=== PATIENT | male | born 1945 | race Caucasian/White ===

== ENCOUNTER 2016-11-24 15:14 | Observation (INO) | payer MEDICARE ==
[~2016-11-24] VITALS: Ht 177.8 cm; Wt 72.5 kg
[2016-11-24 15:15] VITALS: BP 195/91; PULSE 109; RESP 20; TEMP 99.4; O2SAT 94
[2016-11-24] MEDS ORDERED: SODIUM CHLORIDE 0.9% FLUSH 10 ML FLUSH IVF PRN (16:30)
--- NOTE | 2016-11-24 16:30 | PD ---
HPI Chief Complaint: Neuro Symptoms/ Deficits Time Seen by Provider: 16:29 Travel History International Travel<30 days: No Contact w/Intl Traveler<30days: No Traveled to known affect area: No History of Present Illness HPI 71-year-old male presents to the ED for evaluation of memory loss. The patient is with his daughters who helped provide the history. They state that the patient just vacationed in [place]. When one daughter asked him about his trip he was unable to recall that he had been vacationing. The patient is unable to provide a medical history. One daughter thinks that the patient was recently taking "a statin." His daughter states that he had some kind of problem with his prostate that caused him to have to catheterize 4 times a day. Patient is unsure when he last catheterized. He denies headaches, dizziness, fever, chills, chest pain, shortness of breath, abdominal pain, nausea, vomiting , changes in bowel habits, back pain. Patient states that it is October 2011, oriented to the president and self. He states that he is very active, plays tennis a few times a week. He lives alone in [place], [place]. [facility] Social History Tobacco Use: No Allergies-Medications (Allergen,Severity, Reaction): Coded Allergies: UNOBTAINABLE (Unverified , 11/24/16) Reported Meds & Prescriptions Reported Meds & Active Scripts Active Active Prescriptions or Reported Medications Unobtainable Review of Systems Except as stated in HPI: all other systems reviewed are Neg Physical Exam Narrative GENERAL: Well-nourished, well-developed white male appearing younger than his stated age in no acute distress. SKIN: Focused skin assessment warm/dry. HEAD: Normocephalic. EYES: No scleral icterus. No injection or drainage. NECK: Supple, trachea midline. No JVD or lymphadenopathy. CARDIOVASCULAR: Regular rate and rhythm without murmurs, gallops, or rubs. RESPIRATORY: Breath sounds clear and equal bilaterally. No accessory muscle use. GASTROINTESTINAL: Abdomen soft, non-tender, nondistended. Active bowel sounds MUSCULOSKELETAL: No cyanosis, or edema. NEUROLOGICAL: Awake and alert. Cranial nerves II through XII intact. Motor and sensory grossly within normal limits. 5/5 muscle strength in all muscle groups. Normal speech. Mild droop of the left side of the smile, patients daughters state this is the patients normal. BACK: Nontender without obvious deformity. No CVA tenderness. Data Data Last Documented VS Vital Signs Date Time Temp Pulse Resp B/P Pulse Ox O2 Delivery O2 Flow Rate FiO2 11/24/16 16:59 98 11/24/16 15:15 99.4 109 20 195/91 Room Air Orders Electrocardiogram (11/24/16 16:30) Prothrombin Time / Inr (Pt) (11/24/16 16:30) Act Partial Throm Time (Ptt) (11/24/16 16:30) Complete Blood Count With Diff (11/24/16 16:30) Comprehensive Metabolic Panel (11/24/16 16:30) Creatine Kinase (Cpk) (11/24/16 16:30) Troponin I (11/24/16 16:30) Urinalysis - C+S If Indicated (11/24/16 16:30) Ct Brain W/O Iv Contrast(Rout) (11/24/16 16:30) Chest, Single Ap (11/24/16 16:30) Ecg Monitoring (11/24/16 16:30) Iv Access Insert/Monitor (11/24/16 16:30) Oximetry (11/24/16 16:30) Sodium Chloride 0.9% Flush (Ns Flush) (11/24/16 16:30) Mra Carotids W Contrast (11/24/16 ) Mri Brain W/O Contrast (11/24/16 ) Admit Order (Ed Use Only) (11/24/16 19:18) Labs Laboratory Tests Test 11/24/16 11/24/16 16:20 16:50 Urine Color YELLOW Urine Turbidity CLEAR Urine pH 5.5 Urine Specific [place] 1.008 Urine Protein NEG mg/dL Urine Glucose (UA) NEG mg/dL Urine Ketones NEG mg/dL Urine Occult Blood NEG Urine Nitrite NEG Urine Bilirubin NEG Urine Urobilinogen LESS THAN 2.0 MG/DL Urine Leukocyte Esterase NEG Urine RBC LESS THAN 1 /hpf Urine Amorphous Sediment RARE Microscopic Urinalysis Comment CATH-CULT NOT IND White Blood Count 11.0 TH/MM3 Red Blood Count 5.66 MIL/MM3 Hemoglobin 16.6 GM/DL Hematocrit 49.1 % Mean Corpuscular Volume 86.7 FL Mean Corpuscular Hemoglobin 29.3 PG Mean Corpuscular Hemoglobin 33.8 % Concent Red Cell Distribution Width 14.5 % Platelet Count 255 TH/MM3 Mean Platelet Volume 8.0 FL Neutrophils (%) (Auto) 81.2 % Lymphocytes (%) (Auto) 10.6 % Monocytes (%) (Auto) 7.2 % Eosinophils (%) (Auto) 0.4 % Basophils (%) (Auto) 0.6 % Neutrophils # (Auto) 9.0 TH/MM3 Lymphocytes # (Auto) 1.2 TH/MM3 Monocytes # (Auto) 0.8 TH/MM3 Eosinophils # (Auto) 0.0 TH/MM3 Basophils # (Auto) 0.1 TH/MM3 CBC Comment DIFF FINAL Differential Comment Prothrombin Time 10.0 SEC Prothromb Time International 0.9 RATIO Ratio Activated Partial 30.4 SEC Thromboplast Time Sodium Level 138 MEQ/L Potassium Level 4.0 MEQ/L Chloride Level 105 MEQ/L Carbon Dioxide Level 27.1 MEQ/L Anion Gap 6 MEQ/L Blood Urea Nitrogen 20 MG/DL Creatinine 1.65 MG/DL Estimat Glomerular Filtration 41 ML/MIN Rate Random Glucose 113 MG/DL Calcium Level 9.8 MG/DL Total Bilirubin 0.5 MG/DL Aspartate Amino Transf 22 U/L (AST/SGOT) Alanine Aminotransferase 26 U/L (ALT/SGPT) Alkaline Phosphatase 76 U/L Total Creatine Kinase 120 U/L Troponin I LESS THAN 0.02 NG/ML Total Protein 7.8 GM/DL Albumin 4.1 GM/DL [facility] Medical Decision Making Medical Screen Exam Complete: Yes Emergency Medical Condition: Yes Differential Diagnosis TIA versus ICH versus ACS versus UTI versus pneumonia versus electrolyte abnormality versus other Narrative Course 71-year-old male presents to the ED for evaluation of memory loss. The patients daughters state that they had lunch with their father today and noted that the patient was unable to recall his very recent vacation. ON presentation he is unable states that today is September,, oriented to present itself. He is unable to provide a medical history. His daughter states that he self caths 2 /2 "a prostate problem" and also thinks that he stakes statins. Vitals reviewed. Physical exam reveals a nontoxic appearing athletic white male, appearing younger than his stated age in no acute distress. No focal neuro defects. CBC: WBC 11. Hemoglobin 16.6. INR 0.9. 9 CMP: BUN 20, creatinine 1.65. UA: No culture indicated. EKG rate 89, sinus rhythm. MS interval 176, QRS 105, QTC 396. Normal axis. No acute ST changes. Reviewed by Dr. Elizalde. Cardiac enzymes: Negative 1. CXR: Elevated left hemidiaphragm with left lower lobe atelectasis. CT of the brain: Cerebral atrophy without acute intracranial abnormality per radiology read. I discussed the patient, workup and plan with Dr. Elizalde who is in agreement. I discussed the results of the workup with the patient and his family. They' re agreeable to observation admission. Spoke with Dr. Venegas who agrees to accept the patient to the medical service. MRA/MRI ordered. Please see medicine notes for disposition. Scripts Unable to Obtain Active Prescriptions or Reported Meds Geeta Brasher Nov 24, 2016 16:30
[2016-11-24 16:59] VITALS: O2SAT 98
[2016-11-24 17:13] LABS: BLOOD, URINE NEG (NEG); GLUCOSE,URINE NEG (NEG); KETONE, URINE NEG (NEG); NITRITE,URINE NEG (NEG); PH, URINE 5.5 (5.0-8.5); URINE COLOR YELLOW (YELLW/STRAW)
[2016-11-24 17:14] LABS: BASOPHIL # 0.1 TH/MM3 (0-0.2); BASOPHIL % 0.6 % (0.0-2.0); EOSINOPHIL % 0.4 % (0.0-4.0); HEMATOCRIT 49.1 % (39.0-51.0); HEMO FLAGS DIFF FINAL; LYMPH % 10.6 % (9.0-44.0); LYMPHOCYTE # 1.2 TH/MM3 (1.0-4.8); MEAN CELL VOLUME 86.7 FL (80.0-100.0); MEAN CORPUSCULAR HEMOGLOBIN 29.3 PG (27.0-34.0); MEAN CORPUSCULAR HGB CONC 33.8 % (32.0-36.0); MONO % 7.2 % (0.0-8.0); NEUT % 81.2 % (16.0-70.0); PLATELET COUNT 255 TH/MM3 (150-450); RED BLOOD COUNT 5.66 MIL/MM3 (4.50-5.90); RED CELL DISTRIBUTION WIDTH 14.5 % (11.6-17.2)
[2016-11-24 17:15] LABS: COMMENT (UR) CATH-CULT NOT IND; CULTURE IF INDICATED CATH CULTURE NOT IND
[2016-11-24 17:26] LABS: APTT (PATIENT) 30.4 SEC (24.3-30.1); INTERNATIONAL NORMALIZED RATIO 0.9 RATIO
[2016-11-24 17:34] LABS: ALT (GPT) 26 U/L (12-78); ANION GAP 6 MEQ/L (5-15); AST (GOT) 22 U/L (15-37); BICARBONATE 27.1 MEQ/L (21.0-32.0); BLOOD UREA NITROGEN 20 MG/DL (7-18); CHLORIDE 105 MEQ/L (98-107); GLOMERULAR FILTRATION RATE 41 ML/MIN (>89); SODIUM (NA) 138 MEQ/L (136-145)
[2016-11-24 17:38] LABS: ALKALINE PHOSPHATASE 76 U/L (45-117); CREATINE KINASE 120 U/L (39-308); TOTAL BILIRUBIN ADULT 0.5 MG/DL (0.2-1.0)
--- NOTE | 2016-11-24 17:54 | RADRPT ---
EXAM DATE/TIME: 11/24/2016 17:06 [facility] COMPARISON: No previous studies available for comparison. INDICATIONS : Shortness of breath. Confusion. MEDICAL HISTORY : None. SURGICAL HISTORY : None. ENCOUNTER: Initial ACUITY: 1 day PAIN SCORE: 0/10 LOCATION: chest FINDINGS: Elevation of the left hemidiaphragm with associated mild airspace disease in the left lower lung zone . Cardiac mediastinal contours are within normal limits. Bony thorax is intact. CONCLUSION: 1. Elevation of the left hemidiaphragm with associated left lower lobe airspace disease, likely atele ctasis. Davi Steward MD on November 24, 2016 at 17:51 Board Certified Radiologist. This report was verified electronically.
--- NOTE | 2016-11-24 18:30 | RADRPT ---
EXAM DATE/TIME: 11/24/2016 17:53 [facility] COMPARISON: No previous studies available for comparison. INDICATIONS : Altered mental status. RADIATION DOSE: 56.35 CTDIvol (mGy) MEDICAL HISTORY : None SURGICAL HISTORY : Appendectomy. ENCOUNTER: Initial ACUITY: 1 day PAIN SCALE: 0/10 LOCATION: Bilateral cranial TECHNIQUE: Multiple contiguous axial images were obtained of the head. Using automated exposure control and adj ustment of the mA and/or kV according to patient size, radiation dose was kept as low as reasonably a chievable to obtain optimal diagnostic quality images. DICOM format image data is available electro nically for review and comparison. FINDINGS: There is marked central and cortical atrophy with dilatation of ventricular and sulcal spaces. There is no parenchymal hemorrhage, acute infarction or mass lesion identified. There are no extra-axial fluid collections appreciated. The posterior fossa is unremarkable with midline fourth ventricle. T he portion of the orbits and paranasal sinuses visualized are unremarkable. CONCLUSION: Cerebral atrophy. No acute intracranial abnormality. Uday Dean MD on November 24, 2016 at 18:28 Board Certified Radiologist. This report was verified electronically.
[2016-11-24] MEDS ORDERED: DEXTROSE 50% IN WATER 50 ML VIAL(D50) IV PUSH PRN (19:30)
[2016-11-24] MEDS ORDERED: GLUCAGON 1 MG/ML VIAL OTHER PRN (19:30)
[2016-11-24] MEDS ORDERED: SODIUM CHLORIDE 0.9% FLUSH 5 ML FLUSH IV FLUSH PRN (19:30)
[2016-11-24 19:50] VITALS: BP 185/88; PULSE 82; RESP 20; O2SAT 95
--- NOTE | 2016-11-24 20:59 | RADRPT ---
EXAM DATE/TIME: 11/24/2016 20:17 [facility] COMPARISON: CT BRAIN W/O CONTRAST, November 24, 2016, 17:53. INDICATIONS : TIA. MEDICAL HISTORY : Bladder insufficiency. SURGICAL HISTORY : Appendectomy. ENCOUNTER: Initial ACUITY: 1 day PAIN SCORE: 3/10 LOCATION: Bilateral cranial TECHNIQUE: Multiplanar, multisequence MRI of the brain was performed without contrast. FINDINGS: CEREBRUM: The ventricles are normal for age. No evidence of midline shift, mass lesion, hemorrhage or acute in farction. No extraaxial fluid collections are seen. The pituitary gland and suprasellar cistern are normal in configuration. WHITE MATTER: Scattered foci of bright T2 signal abnormalities are seen in the white matter. POSTERIOR FOSSA: The cerebellum and brainstem are intact. The 4th ventricle is midline. The cerebellopontine angle is unremarkable. The cerebellar tonsils are normal in position. DIFFUSION IMAGING: No focal areas of restricted diffusion are seen. No evidence of acute infarction. EXTRACRANIAL: The visualized portions of the orbits and paranasal sinuses are unremarkable. CONCLUSION: Nonspecific white matter changes. No acute infarct. Uday Dean MD on November 24, 2016 at 20:51 Board Certified Radiologist. This report was verified electronically.
[2016-11-24 21:00] VITALS: BP 172/80; PULSE 78; RESP 20; O2SAT 96
[2016-11-24] MEDS ORDERED: SODIUM CHLORIDE 0.9% FLUSH 5 ML FLUSH IV FLUSH SCH (21:00)
[2016-11-24] MEDS ORDERED: GADODIAMIDE PF 287 MG/ML 5 ML VIAL (for RAD MRI) IV ONE (21:13)
[2016-11-24 21:30] VITALS: BP 171/81; PULSE 88; RESP 20; O2SAT 98
--- NOTE | 2016-11-24 21:38 | RADRPT ---
EXAM DATE/TIME: 11/24/2016 20:55 [facility] COMPARISON: No previous studies available for comparison. INDICATIONS : Cerebrovascular accident. MEDICAL HISTORY : Hypercholesterolemia. Unable to obtain more medical history. SURGICAL HISTORY : Appendectomy. Unable to obtain more surgical history. ENCOUNTER: Initial ACUITY: 1 day PAIN SCORE: 0/10 LOCATION: Bilateral neck PEAK SYSTOLIC VELOCITIES (cm/sec): ICA/CCA RATIO: Right: 0.7 Left: 0.5 ICA: Right: 84.6 Left: 62.9 CCA: Right: 114.0 Left: 120.9 ECA: Right: 88.3 Left: 116.3 VERTEBRAL: Right: 58.1 antegrade Left: 61.2 antegrade Elevated flow velocities and ICA/CCA ratios have been found to correlate with increased degrees of vessel stenosis, calculated as percentage of diameter relative to a normal segment of distal ICA/CCA FINDINGS: RIGHT CAROTID: No significant stenosis is visualized. Mild plaque. The waveforms are within normal limits. LEFT CAROTID: No significant stenosis is visualized. Mild plaque. The waveforms are within normal limits. VERTEBRAL ARTERIES: Antegrade flow is seen in both vertebral arteries. MISCELLANEOUS: None. CONCLUSION: No hemodynamically significant stenosis in either carotid artery. Uday Dean MD on November 24, 2016 at 21:34 Board Certified Radiologist. This report was verified electronically.
[2016-11-24] MEDS: INSULIN ASPART SUPPLEMENTAL SCALE SQ SCH (22:24)
[2016-11-24 22:38] LABS: HEMOGLOBIN A1a 1.1 %; HEMOGLOBIN A1b 0.9 %; HEMOGLOBIN Ao 84.5 %; HEMOGLOBIN LA1C 2.2 %
--- NOTE | 2016-11-24 23:10 | HHI.HP ---
HPI Service [facility] Primary Care Physician Non-Staff Admission Diagnosis altered sensorium, rule out TIA vs stroke Diagnoses: (1) Encephalopathy (2) Acute renal insufficiency (3) Hypertension Chief Complaint: acute memory impairment Travel History International Travel<30 Days: No Contact w/Intl Traveler <30 Da: No Traveled to Known Affected Are: No History of Present Illness Written by Barbra Salinas, acting as scribe for Dr. Rondon on 11/24/16 at 23:10. Patient is visiting from [place], [place] Doesn't remember a two hour window of time from today - doesn't recall eating lunch with his daughters During lunch around 1:45 p.m., was talking to daughters and did not recall a trip he took to [place] last week. He was looking at photos on his phone and had no recollection of being there. Last 1 - 2 weeks, denies nausea, vomiting, diarrhea fever, headaches, photosensitivity, paresthesias, weakness in extremities, black or red stool, hematuria, dysuria, frequent urination, frequent urine infections Denies seizures, brain surgery Reports head trauma 3 - 4 years ago - fell on a tennis court - mild concussion possibly - last hospital visit He self-catheterizes every 6 hours due to enlarged prostate - has been doing this since about 2 years ago Brain MRI - no acute infarct; nonspecific white matter changes Head CT - cerebral atrophy Brain MRA is pending Review of Systems Except as stated in HPI: all other systems reviewed are Neg Past Family Social History Past Medical History BPH Hyperlipidemia - patient stopped a couple of weeks ago - reports only slightly elevated cholesterol - he was concerned about side effects - changed to Metamucil thinking fiber would reduce his cholesterol Hypertension Denies diabetes, CAD, CHF, atrial fibrillation, liver problems, kidney problems , DVT, PE, seizures, CVA, thyroid problems, cancers . Past Surgical History Appendectomy in [id number]'s Left side of neck, swollen gland removed while he was in high school Cyst removed from ankle about 9 years ago . Reported Medications Metamucil Vitamins Has prescriptions for but is likely not taking: Flomax Bethanechol Amlodipine Finasteride Simvastatin . Allergies: Coded Allergies: Cat Dander (Verified Allergy, Mild, Sneezing, 11/24/16) Active Ordered Medications Current Medications Sodium Chloride (NS Flush) 2 ml UNSCH PRN IVF FLUSH AFTER USING IV ACCESS; Start 11/24/16 at 16:30; Stop 11/24/16 at 20:18; Status DC IV Flush (NS Flush) 2 ml BID IV FLUSH ; Start 11/24/16 at 21:00 IV Flush (NS Flush) 2 ml UNSCH PRN IV FLUSH FLUSH AFTER USING IV ACCESS; Start 11/24/16 at 19:30 Insulin Aspart (NovoLOG SUPPLEMENTAL SCALE) 1 ACHS SQ Last administered on 11/24t 22:24; Start 11/24/16 at 21:00 Dextrose (D50w (Vial) Inj) 50 ml UNSCH PRN IV PUSH HYPOGLYCEMIA-SEE COMMENTS; Start 11/24/16 at 19:30 Glucagon (Glucagon Inj) 1 mg UNSCH PRN OTHER HYPOGLYCEMIA-SEE COMMENTS; Start 11/24/16 at 19:30 Gadodiamide (Omniscan Pf Inj) 20 ml STK-MED ONCE IV ; Start 11/24/16 at 21:13; Stop 11/24/16 at 21:14; Status DC . Family History Father had CHF Twin brother - possibly identical - no medical issues that he's aware of - lives in [place], [place] . Social History Plays tennis 3 times per week Tobacco: denies ever smoking Alcohol: denies Illicit Drugs: denies Physical Exam Vital Signs Vital Signs Date Time Temp Pulse Resp B/P Pulse Ox O2 Delivery O2 Flow Rate FiO2 11/24/16 21:30 88 20 171/81 98 Room Air 11/24/16 21:00 78 20 172/80 96 Room Air 11/24/16 19:50 82 20 185/88 95 Room Air 11/24/16 16:59 98 11/24/16 15:15 99.4 109 20 195/91 94 Room Air Physical Exam GENERAL: This is a well-nourished, well-developed male patient who appears younger than stated age, in no apparent distress. SKIN: No rashes, ecchymoses or lesions. Cool and dry. HEAD: Atraumatic. Normocephalic. EYES: No scleral icterus. No injection or drainage. ENT: Nose without bleeding, purulent drainage. NECK: Trachea midline. No JVD. CARDIOVASCULAR: Regular rate and rhythm without murmurs, gallops, or rubs. RESPIRATORY: Clear to auscultation. Breath sounds equal bilaterally. No wheezes , rales, or rhonchi. GASTROINTESTINAL: Abdomen soft, non-tender, nondistended. No guarding. MUSCULOSKELETAL: Extremities without clubbing, cyanosis, or edema. No calf tenderness. NEUROLOGICAL: Awake and alert; memory has improved. Motor and sensory grossly within normal limits. Normal speech. . Laboratory Laboratory Tests Test 11/24/16 11/24/16 16:20 16:50 Urine Color YELLOW Urine Turbidity CLEAR Urine pH 5.5 Urine Specific [place] 1.008 Urine Protein NEG Urine Glucose (UA) NEG Urine Ketones NEG Urine Occult Blood NEG Urine Nitrite NEG Urine Bilirubin NEG Urine Urobilinogen LESS THAN 2.0 Urine Leukocyte Esterase NEG Urine RBC LESS THAN 1 Urine Amorphous Sediment RARE Microscopic Urinalysis Comment CATH-CULT NOT IND White Blood Count 11.0 Red Blood Count 5.66 Hemoglobin 16.6 Hematocrit 49.1 Mean Corpuscular Volume 86.7 Mean Corpuscular Hemoglobin 29.3 Mean Corpuscular Hemoglobin 33.8 Concent Red Cell Distribution Width 14.5 Platelet Count 255 Mean Platelet Volume 8.0 Neutrophils (%) (Auto) 81.2 Lymphocytes (%) (Auto) 10.6 Monocytes (%) (Auto) 7.2 Eosinophils (%) (Auto) 0.4 Basophils (%) (Auto) 0.6 Neutrophils # (Auto) 9.0 Lymphocytes # (Auto) 1.2 Monocytes # (Auto) 0.8 Eosinophils # (Auto) 0.0 Basophils # (Auto) 0.1 CBC Comment DIFF FINAL Differential Comment Prothrombin Time 10.0 Prothromb Time International 0.9 Ratio Activated Partial 30.4 Thromboplast Time Sodium Level 138 Potassium Level 4.0 Chloride Level 105 Carbon Dioxide Level 27.1 Anion Gap 6 Blood Urea Nitrogen 20 Creatinine 1.65 Estimat Glomerular Filtration 41 Rate Random Glucose 113 Hemoglobin A1c 5.6 Calcium Level 9.8 Total Bilirubin 0.5 Aspartate Amino Transf 22 (AST/SGOT) Alanine Aminotransferase 26 (ALT/SGPT) Alkaline Phosphatase 76 Total Creatine Kinase 120 Troponin I LESS THAN 0.02 Total Protein 7.8 Albumin 4.1 Result Diagram: 11/24/16 1650 11/24/16 1650 Imaging Last Impressions Head CT 11/24/16 1630 Signed Impressions: Service Date/Time: Thursday, November 24, 2016 17:53 - CONCLUSION: Cerebral atrophy. No acute intracranial abnormality. Uday Dean MD Chest X-Ray 11/24/16 1630 Signed Impressions: Service Date/Time: Tuesday, November 24, 2016 17:06 - CONCLUSION: 1. Elevation of the left hemidiaphragm with associated left lower lobe airspace disease, likely atelectasis. Davi Steward MD Carotid Artery Ultrasound 11/24/16 0000 Signed Impressions: Service Date/Time: Tuesday, November 24, 2016 20:55 - CONCLUSION: No hemodynamically significant stenosis in either carotid artery. Uday Dean MD Brain MRI 11/24/16 0000 Signed Impressions: Service Date/Time: Tuesday, November 24, 2016 20:17 - CONCLUSION: Nonspecific white matter changes. No acute infarct. Uday Dean MD . Assessment and Plan Problem List: (1) Encephalopathy ICD Code: G93.40 Status: Acute (2) Acute renal insufficiency ICD Code: N28.9 Status: Acute (3) Hypertension ICD Code: I10 Status: Chronic Assessment and Plan 71 y/o male with a history of BPH, hypertension, and hyperlipidemia who presented to the ED for evaluation of acute memory impairment: Encephalopathy TIA vs CVA vs metabolic disorder - Carotids ultrasound and MRI brain - negative - Brain MRA is pending - Nursing bedside swallow evaluation - nothing by mouth for now - NIH stroke scale daily - Vital signs every 2 hours 12, then every 4 hours - Neuro checks every 2 hours 12, then every 4 hours - Consult OT, PT, and ST - Well check hemoglobin A1c to check for diabetes mellitus - Will check lipid profile to determine presence of hyperlipidemia - Accu-Cheks before meals and at bedtime with low-dose NovoLog sliding scale coverage to be discontinued if blood glucose remains less than 150 mg/dL in 48 hours from admission - Hypoglycemia protocol - Consults stroke Navigator - Bed rest with head of bed elevated 30 - Neurology consult - EEG - 2 D echocardiogram Acute Renal Insufficiency - no prior labs for comparison - BUN 20, Creatinine 1.65, eGFR - 41 - repeat BMP in a.m. and follow trends in renal indices - avoid nephrotoxins Hypertension, poorly controlled, patient with suspected medication noncompliance - allow for permissive hypertension for now - nursing to notify for sbp > 200 DVT prophylaxis - Heparin 5000 units subq q8h This note was transcribed by scribe [Barbra Salinas]. I, Dr. Leana Rondon personally performed the history, physical exam, and medical decision making; and confirmed the accuracy of the information in the transcribed note. Authenticated by Dr. Leana Rondon on 11/24/16 at 23:10. Discussed Condition With ER physician, patient, patient's two daughters . Barbra Salinas Nov 24, 2016 23:10 Leana Rondon MD Nov 30, 2016 07:45
[2016-11-24 23:32] VITALS: BP 163/78; PULSE 71; RESP 20; TEMP 96.9; O2SAT 95
[2016-11-25 00:06] VITALS: PULSE 68
[2016-11-25] MEDS: HEPARIN SODIUM - SQ 10,000 UNITS/ML VIAL SQ SCH ×2 (00:22→08:00)
[2016-11-25 02:18] VITALS: BP 140/71; PULSE 60; RESP 20; TEMP 96.1; O2SAT 95
[2016-11-25 04:04] VITALS: PULSE 60
[2016-11-25 04:32] VITALS: BP 129/64; PULSE 65; RESP 18; TEMP 96.8; O2SAT 93
[2016-11-25] MEDS: INSULIN ASPART SUPPLEMENTAL SCALE SQ SCH (06:35)
[2016-11-25 07:24] LABS: AUTOMATED NEUTROPHIL # 5.4 TH/MM3 (1.8-7.7); BASOPHIL # 0.1 TH/MM3 (0-0.2); BASOPHIL % 0.6 % (0.0-2.0); EOSINOPHIL # 0.1 TH/MM3 (0-0.4); EOSINOPHIL % 1.4 % (0.0-4.0); HEMATOCRIT 47.3 % (39.0-51.0); HEMO FLAGS DIFF FINAL; LYMPH % 25.1 % (9.0-44.0); LYMPHOCYTE # 2.1 TH/MM3 (1.0-4.8); MEAN CORPUSCULAR HEMOGLOBIN 28.8 PG (27.0-34.0); MEAN CORPUSCULAR HGB CONC 33.1 % (32.0-36.0); MONO % 10.1 % (0.0-8.0); NEUT % 62.8 % (16.0-70.0); PLATELET COUNT 239 TH/MM3 (150-450); RED BLOOD COUNT 5.44 MIL/MM3 (4.50-5.90); RED CELL DISTRIBUTION WIDTH 14.3 % (11.6-17.2); WHITE BLOOD COUNT 8.5 TH/MM3 (4.0-11.0)
[2016-11-25 08:06] LABS: BICARBONATE 25.2 MEQ/L (21.0-32.0); POTASSIUM 3.9 MEQ/L (3.5-5.1)
[2016-11-25 08:52] VITALS: BP 149/82; PULSE 65; RESP 16; TEMP 98.5; O2SAT 94
[2016-11-25 09:00] VITALS: PULSE 68
--- NOTE | 2016-11-25 10:06 | HHI.PR ---
Subjective Remarks Follow up for transient global amnesia. Patient is currently doing well. Per daughter at bedside, his symptoms have resolved. No acute concerns. Patient is currently undergoing EEG study. Objective Vitals Vital Signs Date Time Temp Pulse Resp B/P Pulse Ox O2 Delivery O2 Flow Rate FiO2 11/25/16 08:52 98.5 65 16 149/82 94 11/25/16 04:32 96.8 65 18 129/64 93 11/25/16 04:04 60 11/25/16 02:18 96.1 60 20 140/71 95 11/25/16 00:06 68 11/24/16 23:32 96.9 71 20 163/78 95 11/24/16 21:30 88 20 171/81 98 Room Air 11/24/16 21:00 78 20 172/80 96 Room Air 11/24/16 19:50 82 20 185/88 95 Room Air 11/24/16 16:59 98 11/24/16 15:15 99.4 109 20 195/91 94 Room Air Result Diagram: 11/25/16 0549 11/25/16 0549 Imaging Last Impressions Head CT 11/24/16 1630 Signed Impressions: Service Date/Time: Thursday, November 24, 2016 17:53 - CONCLUSION: Cerebral atrophy. No acute intracranial abnormality. Uday Dean MD Chest X-Ray 11/24/16 1630 Signed Impressions: Service Date/Time: Thursday, November 24, 2016 17:06 - CONCLUSION: 1. Elevation of the left hemidiaphragm with associated left lower lobe airspace disease, likely atelectasis. Davi Steward MD Carotid Artery Ultrasound 11/24/16 0000 Signed Impressions: Service Date/Time: Thursday, November 24, 2016 20:55 - CONCLUSION: No hemodynamically significant stenosis in either carotid artery. Uday Dean MD Brain MRI 11/24/16 0000 Signed Impressions: Service Date/Time: Thursday, November 24, 2016 20:17 - CONCLUSION: Nonspecific white matter changes. No acute infarct. Uday Dean MD Objective Remarks GENERAL: AOX3, NAD. SKIN: Warm and dry. HEAD: Normocephalic. EYES: No scleral icterus. No injection or drainage. NECK: Supple, trachea midline. No JVD or lymphadenopathy. CARDIOVASCULAR: Regular rate and rhythm without murmurs, gallops, or rubs. RESPIRATORY: Breath sounds equal bilaterally. No accessory muscle use. GASTROINTESTINAL: Abdomen soft, non-tender, nondistended. MUSCULOSKELETAL: No cyanosis, or edema. BACK: Nontender without obvious deformity. No CVA tenderness. Procedures EEG 11/25/2016 A/P Problem List: (1) Encephalopathy ICD Code: G93.40 Status: Acute (2) Acute renal insufficiency ICD Code: N28.9 Status: Acute (3) Hypertension ICD Code: I10 Status: Chronic Assessment and Plan 71 y/o male with a history of BPH, hypertension, and hyperlipidemia who presented to the ED for evaluation of acute memory impairment. - Transient Global amnesia - Resolved. Neurology already evaluated patient. - MRI brain unremarkable. MRA studies done, reports pending. - Aspirin 81mg Qday on discharge today. - Hypertension - Patient takes Amlodipine. Encouraged patient to discuss with PCP regarding BP medications. - Hyperlipidemia - Patient takes Simvastatin. His ASCVD score is 33.8%. - Home meds are not on the EMR. I have discussed with patient and daughter regarding Lipitor. - I advised patient not to take Simvastatin any more. Start Lipitor 40mg QHS. Full code. Discharge patient to home Condition on discharge: Improved Heart healthy Diet as tolerated [employer] activity Rx written: - STOP Simvastatin - Start Lipitor 40mg QHS and Aspirin 81mg Qday. - Continue Amlodipine. If BP remains elevated, PCP can consider additional BP meds. Follow-up with primary care physician within one week. Edel Shepard DO Nov 25, 2016 10:06 am
[2016-11-25] MEDS ORDERED: ASPI81TA11 PO (10:08)
[2016-11-25] MEDS ORDERED: LIPI40TA PO (10:08)
--- NOTE | 2016-11-25 11:23 | RADRPT ---
EXAM DATE/TIME: 11/24/2016 00:00 [facility] COMPARISON: No previous studies available for comparison. INDICATIONS : CVA. CONTRAST: 20 cc Omniscan (gadodiamide) IV MEDICAL HISTORY : Bladder insufiency. SURGICAL HISTORY : Appendectomy. ENCOUNTER: Initial ACUITY: 1 day PAIN SCORE: 2/10 LOCATION: Bilateral cranial Percent stenosis is calculated using the diameter of the stenotic region over the diameter of the nor mal distal internal carotid artery. TECHNIQUE: Bolus infused MRA of the extracranial circulation was performed using a neurovascular coil. Post pro cessing was performed including rotating subvolume maximum intensity projections of each carotid sophia ry, rotating full volume maximum intensity projections of both carotid arteries, sagittal and coronal sliding thin slab reformations of each carotid artery, and left oblique sliding thin slab reformatio n through the aortic arch to include the origin of the arch branch vessels. FINDINGS: AORTIC ARCH: There is a three vessel origin of the great vessels from the aorta. No evidence of ostial narrowing. RIGHT CAROTID: The common carotid artery is intact. The carotid bulb has a normal configuration without ulceration or narrowing. The internal carotid artery lumen is smooth without stenosis. The external carotid ar eugene is intact. LEFT CAROTID: The common carotid artery is intact. The carotid bulb has a normal configuration without ulceration or narrowing. The internal carotid artery lumen is smooth without stenosis. The external carotid ar eugene is intact. VERTEBRALS: The vertebral arteries have a symmetric diameter. No stenotic lesions are seen. CONCLUSION: 1. Unremarkable MRA examination. No evidence for significant flow-limiting stenosis. Davi Steward MD on November 25, 2016 at 11:18 Board Certified Radiologist. This report was verified electronically.
--- NOTE | 2016-11-25 12:55 | EKG ---
Date Performed: 11/24/2016 Time Performed: 16:42:07 PTAGE: 71 years EKG: Sinus rhythm MODERATE VOLTAGE CRITERIA FOR LVH, CONSIDER NORMAL VARIANT BORDERLINE ECG NO PREVIOUS TRACING DOCTOR: Maico Ha Interpretating Date/Time 11/25/2016 12:51:08
--- NOTE | 2016-11-25 13:45 | RADRPT ---
EXAM DATE/TIME: 11/25/2016 10:45 [facility] COMPARISON: No previous studies available for comparison. INDICATIONS : Short term memory loss. MEDICAL HISTORY : Bladder insuffiency. SURGICAL HISTORY : Appendectomy. Cyst removal. ENCOUNTER: Subsequent ACUITY: 2 day PAIN SCORE: 0/10 LOCATION: head. Please note a normal MRA of the brain does not entirely exclude the possibility of a small aneurysm, nor the possibility of distal intracranial vessel disease. TECHNIQUE: 3D time of flight MRA was performed. Source images, multiplanar STS MIP, and 3D volume MIP reconstru ctions were reviewed. FINDINGS: There is excellent visualization of the major intracranial arteries out to the second-order branch ve ssels. There is no evidence for aneurysm, vessel truncation or stenosis, and no evidence for vascula r malformation. Focal stenosis is identified in the nondominant right vertebral artery in what I believe is the regio n of a PICA branch. Posterior circulation inflow is otherwise patent but does not contribute to the s upratentorial circulation. Both posterior cerebral arteries receive exclusive supply via widely paten t posterior communicating arteries. 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 CONCLUSION: 1. Anatomic variant of the [place] as above. Intracranial vessels are otherwise widely paten t no aneurysmal disease. 2. Focal stenosis of the nondominant right vertebral artery in what I believe is the region of the ri ght PICA branch. Clinical significance of this is uncertain. In-Flow vessels are otherwise patent. Mateo Ta MD on November 25, 2016 at 13:39 Board Certified Radiologist. This report was verified electronically.
--- NOTE | 2016-11-26 05:49 | MG ---
cc: PLACIDO MONTENEGRO MD Lab No: [id number] Date: 11/25/2016 Age: 71 Sex: M Race: DATE OF 1945 INDICATIONS A 71-year-old with history of memory loss. FINDINGS 6-10 Hz alpha activity, 20-50 microvolts. low-amplitude beta in the frontal channels, good anterior to posterior gradient. Occasional eye movement artifact. Some rapid eye movements at epoch 16. Good driving with photic stimulation. Good EEG variability reactivity. Attenuation, gradual slowing, transition into drowsy state followed by stage I sleep, vertex waves theta-delta slowing with episodes of arousal in appropriate increment posterior rhythm and activity. Single lead EKG showing sinus rhythm. INTERPRETATION Normal awake and sleep EEG. Clinical correlation. Placido Montenegro MD MG/SSB /9:55 PM /5:43 AM
--- NOTE | 2016-11-26 08:53 | MB ---
cc: MANJULA WHITLEY MD DATE OF CONSULTATION: 11/25/2016 REASON FOR CONSULTATION: Acute memory loss. HISTORY OF PRESENT ILLNESS Mr. Fisher is a 71-year-old male with past medical history of mild hypertension, hyperlipidemia and BPH. Denies smoking, illicit drug abuse and he states that he lives a healthy lifestyle. He comes from [place] for a vacation in [facility] with his daughter at [employer] and it was reported that while he was sitting at a lunch table and helping in preparing lunch the patient was at times not aware of what he was doing and he tended to repeat questions several times but in the same time the daughter states that he would prepare food, he sat at the table eating without difficulty swallowing or chewing but sometimes he would ask the same question and does not recall that he has been and was counseled with friends a short time earlier. The patient seemed to the daughter aware, but seemed to be forgetful and disoriented, denies seizure activity, double vision, headache, weakness of an extremity, loss of sphincter control. The patient was transported to the hospital and he has no recollection of what happened from that lunch time to later in the hospital, even he does not have a recollection of how the IV lines were in. He gradually came back to normal as per the daughter and today he is back to his normal cognitive and motor baseline but without any the recollection of the whole incident. The patient denies any similar episode in the past. REVIEW OF SYSTEMS A 12-point review of systems is negative except for what is stated in the HPI. PAST MEDICAL HISTORY 1. Hyperlipidemia 2. Hypertension 3. BPH. PAST SURGICAL HISTORY 1. Appendectomy in the 80s 2. Cyst removal from the ankle. MEDICATIONS 1. Metamucil. 2. Vitamins. 3. Flomax. 4. Bethanechol. 5. Amlodipine. 6. Finasteride. 7. Simvastatin. ALLERGIES CAT dander. FAMILY HISTORY Father had congestive heart failure, twin brother with no medical issues. SOCIAL HISTORY Denies ever smoking. Denies alcohol or illicit drug abuse. He lives an active healthy life. PHYSICAL EXAMINATION IN GENERAL: Awake, alert, pleasant good historian not in acute distress. HENT: Atraumatic, normocephalic. Intact hearing. Intact vision. NECK: Supple. No signs of meningeal irritation. No carotid bruits. CARDIOVASCULAR SYSTEM: Regular rate and rhythm. RESPIRATORY: Clear to auscultation. No wheezes. GASTROINTESTINAL: Soft abdomen. Not tender. MUSCULOSKELETAL: Extremities without clubbing, cyanosis or edema. NEUROLOGIC: Awake, alert and no dysarthria. No dysphasia. Intact recent and remote memory other than no recollection of the episode. Cranial nerve examination II-XII are grossly intact. Next motor examination revealed 5/5 bilateral symmetrical and no abnormal tone, normal reflexes. Sensation is intact throughout bilateral and symmetrical. Reflexes 2+ bilateral and symmetrical. Plantar's are bilaterally downgoing. Cerebellar functions are intact. PSYCHIATRIC: Normal mood and behavior. Good judgment. LABORATORY DATA White blood cells 8.5, hemoglobin 15.7, platelet 2389, sodium 140, potassium 139, BUN 18, creatinine 1.4, triglyceride 170, Colace elevated at 170, cholesterol 191, LDL elevated at 118 HDL 39, calcium 9.8. Liver function tests normal. INR 0.9. Urine exam is unremarkable. DIAGNOSTIC IMAGING STUDIES - Head CT scan severe atrophy, no acute intracranial abnormality. - Carotid ultrasound with no hemodynamically significant stenosis in either carotid artery. - Brain MRI w/o contrast revealed nonspecific white matter changes. No acute infarction. - Neck MRA with contrast/ MRA carotids unremarkable - Head MRA was ordered and done pending the results. DIAGNOSTIC IMPRESSION 1. Transient global amnesia. 2. History of hypertension. 3. Hyperlipidemia. - I explained at length to the patient at his daughter who was at the bedside the nature of the neurologic status and that the patient is stable and he needs to follow up with his primary care physician for management of possible risk factors. They both understand. PLAN 1. Examination is nonfocal neurological investigation other than the pending Head MRA, all are reported with no acute intracranial abnormality. 2. Aspirin 81 mg 3. Follow-up with primary care physician and for tight control of risk factor. 4. Please call for questions. 5. Thank you for the opportunity to participate in the care of your patient. MD ALVERTO Nguyen/jadiel /1:07 PM /8:42 AM [place]
== END 2016-11-25 12:20 | disposition home or self-care (01) ==
LOC: NEPE 15:14 → NEDA 19:20 → NEPFCDU 22:34
PROVIDERS: ADMIT Hospitalist; ATTEND Hospitalist
DX: G93.40 Encephalopathy, unspecified (principal); N28.9 Disorder of kidney and ureter, unspecified; I65.01 Occlusion and stenosis of right vertebral artery; I65.22 Occlusion and stenosis of left carotid artery; G45.4 Transient global amnesia; R06.02 Shortness of breath; R41.82 Altered mental status, unspecified; I10 Essential (primary) hypertension; E78.5 Hyperlipidemia, unspecified; E78.00 Pure hypercholesterolemia, unspecified; G31.9 Degenerative disease of nervous system, unspecified; N40.1 Benign prostatic hyperplasia with lower urinary tract symptoms; Z79.899 Other long term (current) drug therapy; Z86.73 Personal history of transient ischemic attack (TIA), and cerebral infarction without residual deficits
CPT/HCPCS: 70450; 70544; 70548; 70551; 71010; 80048; 80053; 80061; 81001; 82550; 82948; 83036; 84484; 85025; 85610; 85730; 92610; 93005; 93880; 95819; 99285; A9579; G0378; G8996; G8997; G8998; J1644; J1815